=== PATIENT | female | born 2000 | race African-American/Black ===

== ENCOUNTER 2024-03-09 22:07 | Observation (INO) | payer SELFPAY ==
--- NOTE | ~2024-03-09 | US_ITS ---
Pelvic ultrasound. Clinical History: First trimester , evaluate for ectopic Technique: Realtime transabdominal and transvaginal scanning of the pelvis was performed. Color flow Doppler and Doppler spectral analysis were performed. Findings: The uterus is anteverted, and measures approximately 17.4 x 7.3 x 12.3 cm. Large posterior intramural fibroid measures 6.7 x 5.7 x 7.0 cm. Partially exophytic fibroid towards the left side dani sures 4.1 x 3.6 x 3.5 cm.. Endometrial stripe measures 15 mm in thickness. There is a probable early intrauterine gestational sac, with estimated gestational age of 5 weeks 2 days based on average sac d iameter 1.2 cm. No visible pole or yolk sac. The right ovary measures 1.9 x 2.6 x 2.1 cm. No significant right ovarian or adnexal mass is seen. The left ovary is not visualized. No significant left ovarian or adnexal mass is seen. There is a small amount of free fluid in the cul de sac. Impression: Probable early intrauterine gestational sac, with estimated gestational age of 5 weeks 2 days based o n average sac diameter. No visible pole or yolk sac, which would be commensurate with the early gestational age. Consider follow-up with serial beta hCG. Consider follow-up ultrasound as indicated . Multi fibroid uterus, as detailed above. Reviewed, dictated and finalized at [facility]. TECHNICIAN Impression: Probable early intrauterine gestational sac, with estimated gestational age of 5 weeks 2 days based on average sac diameter. No visible pole or yolk sac , which would be commensurate with the early gestational age. Consider follow-u p with serial beta hCG. Consider follow-up ultrasound as indicated. Multi fibroid uterus, as detailed above.
--- NOTE | ~2024-03-09 | US_ITS ---
Pelvic ultrasound. Clinical History: First trimester , pain Technique: Realtime transabdominal and transvaginal scanning of the pelvis was performed. Color flow Doppler and Doppler spectral analysis were performed. Findings: The uterus is anteverted. The endometrial stripe has a thickness of 11 mm. No intrauterine gestational sac is identified. Large posterior intramural fibroid, with partial cervical spine invol vement, measures 6.9 x 5.8 x 6.9 cm. Lower uterine segment fibroid measures up to 3.7 cm in diameter. The right ovary measures 3.1 x 2.7 x 2.5 cm. No significant right ovarian or adnexal mass is seen. The left ovary measures 4.8 x 3.6 x 4.0 cm. Simple left ovarian cyst measures 2.5 cm in diameter. There is small amount of free fluid in the cul de sac. Impression: Positive test without intrauterine gestation. Differential diagnosis includes early normal , spontaneous , or nonvisualized ectopic . Correlate clinically. Continued follow-up with serial beta hCG, and repeat ultrasound as warranted, is advised. Uterine fibroids, as above. Reviewed, dictated and finalized at location . [employer] Impression: Positive test without intrauterine gestation. Differential diagnosis includes early normal , spontaneous , or nonvisualized ectopic . Correlate clinically. Continued follow-up with serial beta hCG, and repeat ultrasound as warranted, is advised. Uterine fibroids, as above.
[2024-03-09 22:20] VITALS: BP 181/103; PULSE 112; RESP 20; TEMP 36.8; O2SAT 100
[2024-03-10] VITALS (11 sets, daily range): BP systolic 137–164; BP diastolic 76–88; PULSE 98–121; RESP 12–24; TEMP 36.8–37.4; O2SAT 96–100; BMI 42.1
--- NOTE | 2024-03-10 05:30 | ECG_ITS ---
Test Date: 2024-03-10 05:40:46 Measurements Intervals [place] Rate: 103 P: 49 KS: 149 QRS: 22 QRSD: 88 T: 19 QT: 328 QTc: 431 Interpretive Statements SINUS TACHYCARDIA MINIMAL VOLTAGE CRITERIA FOR LVH, CONSIDER NORMAL VARIANT [MEETS CRITERIA IN ONE OF: R(aVL), S(V1), R(V5), R(V5/V6)+S(V1)] ABNORMAL RHYTHM ECG No previous ECG available for comparison Electronically Signed On 03-10-2024 22:09:16 FINISHER CARD TENDER by Lidia Young M.D.
--- NOTE | 2024-03-10 05:54 | PC.NURSE ---
Patient states LMP was in january, the beginning of the month but I don't know the day. ERP notified and US ordered for R/O ectopic. Pt c/o of L sided abd pain.
[2024-03-10 05:56] LABS: BEDSIDEPREGUCG Positive (Negative)
[2024-03-10] MEDS: SODIUM CHLORIDE 0.9% IV 1,000 ML 999 ML IV CONT (05:58)
[2024-03-10 05:59] LABS: Basophils Percent Auto 0.2 % (0.2-1.2); Eosinophils Percent Auto 0.2 % (0-4.4); Hematocrit 25.7 % (37.0-47.0); Immature Granulocyte Absolute 0.02 K/mm3 (0.00-0.031); Immature Granulocyte Percent A 0.2 % (0-0.5); Lymphocytes Absolute Auto 2.67 K/mm3 (0.9-3.2); Lymphocytes Percent Auto 31.1 % (18.3-44.2); Mean Corpuscular HGB Conc 31.1 g/dl (32-36); Mean Corpuscular Hemoglobin 19.1 pg (26-34); Mean Corpuscular Volume 61.3 fl (80-100); Mean Platelet Volume 9.5 fl (7.4-10.4); Monocytes Absolute Auto 0.7 K/mm3 (0.1-0.6); Monocytes Percent Auto 8.4 % (2.6-8.5); Neutrophils Absolute Auto 5.1 K/mm3 (1.3-6.7); Neutrophils Percent Auto 59.9 % (45.5-73.1); Platelet Count Result 470 k/mm3 (150-375); Red Blood Count 4.19 M/mm3 (4.2-5.4); Red Cell Distribution Width 21.5 % (11.5-14.5); White Blood Count 8.6 K/mm3 (4.5-10.0)
[2024-03-10 06:12] LABS: Alanine Aminotransferase 19 U/L (6-35); Albumin Level 4.4 g/dL (3.5-5.1); Alkaline Phosphatase 67 U/L (38-126); Anion Gap 10 mmol/L (4-12); Aspartate Amino Transferase 22 U/L (14-36); Bilirubin,Total 0.5 mg/dL (0.2-1.3); Blood Urea Nitrogen 6 mg/dL (7-17); Calcium 9.5 mg/dL (8.4-10.2); Carbon Dioxide 21 mmol/L (22-30); Chloride 108 mmol/L (98-107); Estimated CRCL calculation 178 ml/min; Estimated Glomerular Filt Rate > 60; Glucose 115 mg/dL (65-110); Lipase 104 U/L (23-300); Potassium 3.7 mmol/L (3.4-5.0); Sodium 139 mmol/L (137-145)
[2024-03-10 06:26] LABS: Partial Thromboplastin Time 24.8 Seconds (22.3-36.8); Prothrombin Time 13.9 Seconds (11.1-14.7)
--- NOTE | 2024-03-10 06:26 | ED.SYNCOPE ---
HPI - Syncope General Chief Complaint: Syncope Stated Complaint: anemic, syncope, abdominal pain Time Seen by Provider: 03/10/24 05:55 History of Present Illness HPI narrative: 23-year-old otherwise healthy female presenting to the emergency room with chief complaint of a syncopal event, nausea, vomiting and cramping abdominal pain in the left side. Patient states that she was breaking somebody tear today when she felt a severe nauseous sensation and had to sit down or she passed out briefly. Patient woke up, had vomiting and some cramping left-sided abdominal pain. She states she also had episode of loose stool yesterday but no watery diarrhea or blood. Denies any vaginal bleeding, dysuria or urinary symptoms. She states she has not had her period since the beginning of January. Patient was otherwise in her normal state of health. Patient states she has had a history of anemia an iron deficiency for which she takes iron supplements. Related Data Allergies Allergy/AdvReac Type Severity Reaction Status Date / Time No Known Allergies Allergy Verified 03/09/24 22:08 Review of Systems Review of Systems: As reviewed above in HPI Exam Narrative: GENERAL: Tearful, not any acute distress HEAD: [Normocephalic, atraumatic.] EYES: [PERRLA and EOMI.] ENT: Nares clear, no rhinorrhea or epistaxis. Mucous membranes moist. NECK: Supple. CHEST: [Clear to auscultation. No respiratory distress.] HEART: [Regular rate and rhythm]. No murmur heard. [Normal peripheral pulses.] ABDOMEN: [Soft, nondistended], mild tenderness to palpation left lower quadrant, [No rigidity or guarding] EXTREMITIES: Normal range of motion. [No edema.] SKIN: Warm, dry, no rash. NEURO: [No focal deficits]. Alert and oriented [x3.] PSYCH: [Normal mood and affect.] Course Vital Signs Vital signs: Vital Signs Temperature 36.8 C 03/09/24 22:20 Pulse Rate 112 H 03/09/24 22:20 Respiratory Rate 20 03/09/24 22:20 Blood Pressure 181/103 H 03/09/24 22:20 Pulse Oximetry 100 03/09/24 22:20 Temperature 36.8 C 03/09/24 22:20 Pulse Rate 110 H 03/10/24 08:46 Respiratory Rate 17 03/10/24 08:42 Blood Pressure 153/80 H 03/10/24 08:46 Pulse Oximetry 100 03/10/24 08:42 MDM - Syncope MDM Narrative Medical decision making narrative: 23-year-old female with history of iron deficiency anemia presenting to the emergency room today after a syncopal event associated with nausea, vomiting left-sided cramping abdominal pain. Patient states that she was braiding hair when she felt profoundly nauseous and had a syncopal event. She said back into a couch and did not fall to the ground or strike her head. She woke up momentarily thereafter and complained of nauseousness and cramping abdominal pain. She is found to be while here in the emergency department, tachycardic with a pulse of 112, slightly hypertensive with a blood pressure 164/88. Respiratory rate of 20, no fever or hypoxia. She has some mild tenderness in left lower quadrant but no overlying skin changes. No urinary complaints or vaginal bleeding or spotting. Last menstrual period about 8 weeks ago. Considerations presently are for potential ectopic given the tachycardia, positive test and syncopal event associated with abdominal pain. The nausea vomiting as well as 1 episode of loose diarrhea could be nonspecific gastroenteritis that may have also led to the syncopal event. EKG was obtained, blood work was sent, quantitative beta HCG obtained as well as a pelvic and transabdominal ultrasound to rule out any kind of ectopic . She was provided fluid bolus. Presently she does not have any pain and provided nausea medicine including Zofran. Patient frequently evaluated and remains persistently tachycardic in the low 110s to 115 range. No fever or hypoxia. No blood pressure concerns. No leukocytosis, hemoglobin of 8.0 with microcytosis consistent with her known history of iron deficiency anemia but no baseline to compare to. Coagulation studies within normal limits. Electrolytes largely unremarkable, normal renal function panel, normal glucose and hepatic function panel. Beta hCG is elevated 6880. Urinalysis is profoundly contaminated with many squamous cells making was nondiagnostic, patient does not have any urinary tract infection type symptoms at this time. COVID fluid RSV swabs are negative. Ultrasound of the abdomen and pelvis was independently reviewed and interpreted by radiology. No identifiable intrauterine gestation, trace free fluid in the cul-de-sac, uterine fibroids noted. Considerations for a nonvisualized ectopic at this time given patient's positive test above the discrimination zone, persistent tachycardia and free fluid in the abdomen. Consult was placed I spoke to Dr. Torres from OBGYN over the phone. We went over patient's imaging studies, clinical exam and assessment with plan of care. Patient will be admitted to the OBGYN service for observation and potential methotrexate for ectopic. Patient was made aware of the imaging findings and plan of care and was agreeable to hospital admission at this time. Observation admit order to the OB service with telemetry ordered. Maintenance fluids ordered as well as NPO status. Medical Records Attestation: I reviewed the patient's medical records. Lab Data Attestation: I reviewed the patient's lab results. 03/10/24 05:47 03/10/24 05:47 Labs: Lab Results 03/10/24 03/10/24 03/10/24 Range/Units 05:47 05:54 06:21 WBC 8.6 (4.5-10.0) K/mm3 RBC 4.19 L (4.2-5.4) M/mm3 Hgb 8.0 L (12.0-15.0) g/dL Hct 25.7 L (37.0-47.0) % MCV 61.3 L (80-100) fl MCH 19.1 L (26-34) pg MCHC 31.1 L (32-36) g/dl RDW 21.5 H (11.5-14.5) % Plt Count 470 H (150-375) k/mm3 MPV 9.5 (7.4-10.4) fl Immature Gran % (Auto) 0.2 (0-0.5) % Neut % (Auto) 59.9 (45.5-73.1) % Lymph % (Auto) 31.1 (18.3-44.2) % [place] % (Auto) 8.4 (2.6-8.5) % Eos % (Auto) 0.2 (0-4.4) % Baso % (Auto) 0.2 (0.2-1.2) % Lymph # (Auto) 2.67 (0.9-3.2) K/mm3 Casey # (Auto) 0.7 H (0.1-0.6) K/mm3 Eos # (Auto) 0.0 (0-0.3) K/mm3 Baso # (Auto) 0.0 (0.0-0.1) K/mm3 Abs Immat Gran (auto) 0.02 (0.00-0.031) K/mm3 Absolute Neuts (auto) 5.1 (1.3-6.7) K/mm3 Absolute Nucleated RBC 0.000 (0.0-0.012) K/mm3 Nucleated RBC % 0.0 (0.0-0.2) % Platelet Estimate Increased (Adequate) Hypochromasia 3+ Anisocytosis 1+ Target Cells 1+ [place] Cells 1+ Schistocytes None seen PT 13.9 (11.1-14.7) Seconds INR 1.0 APTT 24.8 (22.3-36.8) Seconds Sodium 139 (137-145) mmol/L Potassium 3.7 (3.4-5.0) mmol/L Chloride 108 H (98-107) mmol/L Carbon Dioxide 21 L (22-30) mmol/L Anion Gap 10 (4-12) mmol/L BUN 6 L (7-17) mg/dL Creatinine 0.49 L (0.7-1.0) mg/dL Estim Creat Clear Calc 178 ml/min Estimated GFR > 60 (59 - ) Glucose 115 H (65-110) mg/dL Calcium 9.5 (8.4-10.2) mg/dL Total Bilirubin 0.5 (0.2-1.3) mg/dL AST 22 (14-36) U/L ALT 19 (6-35) U/L Alkaline Phosphatase 67 (38-126) U/L Total Protein 8.0 (6.3-8.2) g/dL Albumin 4.4 (3.5-5.1) g/dL Lipase 104 (23-300) U/L Beta HCG, Quant 6888.50 mIU/ML Urine Color Dark yellow (Yellow) Urine Appearance Cloudy H (Clear) Urine pH 5.0 (5.0-9.0) Ur Specific [place] 1.032 (1.001-1.035) Urine Protein 1+ H (Negative) mg/dL Urine Glucose (UA) Negative (Negative) mg/dL Urine Ketones Trace H (Negative) mg/dL Ur Blood (Man) Negative (Negative) Urine Nitrate Positive H (Negative) Urine Bilirubin Negative (Negative) Urine Urobilinogen 1.0 (<2.0) mg/dL Add Ur Microanalysis Reviewed Leukocyte Esterase Rfl 1+ H (Negative) BROOK/UL Urine RBC 3-5 H (0-2) /hpf Urine WBC 21-50 H (0-3) /hpf Ur Squamous Epith Cells Many H (Few) /hpf Urine Bacteria 4+ H /hpf Urine Casts 0-2 POC Urine HCG, Qual Positive (Negative) Influenza A (RT-PCR) Negative (Negative) Influenza B (RT-PCR) Negative (Negative) RSV (RT-PCR) Negative (Negative) SARS-CoV-2 RNA (RT-PCR) Negative (Negative) Blood Type B Positive Antibody Screen Negative Screen Not Reportable Baby's Blood Type Not Reportable Baby's EVELIN Not Reportable Doses of RhIg Required 0 Imaging Data Attestation: I personally reviewed and interpreted this imaging study as follows: My impression: Impressions Obstetrics Ultrasound 03/10/24 08:33 Impression: Positive test without intrauterine gestation. Differential diagnosis includes early normal , spontaneous , or nonvisualized ectopic . Correlate clinically. Continued follow-up with serial beta hCG, and repeat ultrasound as warranted, is advised. Uterine fibroids, as above. Discharge Plan Discharge Clinical Impression: Ectopic without intrauterine , Syncope and collapse, Tachycardia Patient Disposition: Still a Patient Condition: Guarded Prognosis Patient Language: Yi Follow-up/Referrals: PHYSICIAN,[facility] [employer] [Primary Care Provider] - Time of Disposition: 09:16
[2024-03-10 06:29] LABS: Add Urine Microscopic? YES; Appearance Urine Cloudy (Clear); Bacteria Urine 4+ /hpf; Bilirubin Urine Negative (Negative); Blood Urine Negative (Negative); Color Urine Dark Yellow (Yellow); Glucose Urine UA Negative (Negative); Ketones Urine Trace mg/dL (Negative); Leukocyte Esterase Ur 1+ LEU/UL (Negative); Need Manual Microscopic Reviewed; Nitrate Urine Positive (Negative); Non Pathogenic Casts 0-2; Protein Urine 1+ mg/dL (Negative); Specific Grav Ur 1.032 (1.001-1.035); Squamous Epithelial Cell Urine Many /hpf (Few); WBC Urine 21-50 /hpf (0-3)
[2024-03-10 06:35] LABS: Influenza A QL RT-PCR Negative (Negative); Influenza B QL RT-PCR Negative (Negative); RSV RNA, RT-PCR Negative (Negative); SARS-CoV-2 RNA PCR Negative (Negative)
--- NOTE | 2024-03-10 07:03 | PC.NURSE ---
Patient in US at this time.
[2024-03-10 07:15] LABS: Platelet Estimate Increased (Adequate)
[2024-03-10 07:16] LABS: Anisocytosis 1+; Burr Cells 1+; Hypochromasia 3+; Schistocytes None Seen; Target Cells 1+
[2024-03-10] MEDS: LACTATED RINGERS 1,000 ML 125 ML IV CONT ×2 (09:17→17:54)
--- NOTE | 2024-03-10 13:12 | PC.NURSE ---
patient being admitted with IV fluids infusing per order
[2024-03-11] VITALS (10 sets, daily range): BP systolic 138–150; BP diastolic 79–94; PULSE 92–107; RESP 18; TEMP 36.9–37.2; O2SAT 100
[2024-03-11] MEDS: LACTATED RINGERS 1,000 ML 125 ML IV CONT ×2 (03:03→11:26)
--- NOTE | 2024-03-11 17:32 | PM.IMHP ---
H&P: HPI History of Present Illness Date/Time: 03/11/24 17:32 Chief Complaint: Dizziness Narrative: 23-year-old female who presented to the emergency department for dizziness. She is . She has an unknown last menstrual period date. Quantitative hCG was obtained in the emergency department along with pelvic ultrasound. There is a of unknown location with a quantitative HCG over 6000. Patient has no pain in the pelvis. Patient denies any vaginal bleeding. She denies any nausea, vomiting, fever, chills. She denies any chest pain or shortness of breath. We discussed the findings. We discussed of unknown location. We agreed to repeat quantitative HCG tonight and consider ultrasound for the morning. A more accurate diagnosis may be revealed. Review of Systems Review of Systems: All systems reviewed & are unremarkable except as noted in HPI and below Constitutional: Constitutional: Denies chills, Denies fatigue, Denies fever(s) and Denies weakness Eyes: Eyes: Denies blurry vision, Denies change in vision, Denies loss of peripheral vision, Denies loss of vision, Denies other visual disturbances and Denies eye pain ENT: Denies vertigo, Denies dizziness, Denies hearing loss, Denies mouth pain, Denies nasal obstruction, Denies neck mass and Denies neck pain Cardiovascular: Cardiovascular: Denies chest pain, Denies diaphoresis, Denies syncope, Denies leg edema and Denies dyspnea Respiratory: Respiratory: Denies chest congestion, Denies cough, Denies hemoptysis, Denies dyspnea and Denies wheezing Gastrointestinal: Gastrointestinal: Denies abdominal pain, Denies constipation, Denies diarrhea, Denies nausea and Denies vomiting Genitourinary: Genitourinary: Denies hematuria, Denies change in libido, Denies nocturia, Denies genital lesions, Denies flank pain and Denies urinary urgency Musculoskeletal: Musculoskeletal: Denies abnormal gait, Denies back pain, Denies myalgias, Denies arthralgias, Denies joint swelling, Denies muscle weakness and Denies neck pain Integumentary/Breasts: Skin/Breast: Denies swelling, Denies breast pain, Denies breast mass, Denies dry skin, Denies nipple discharge, Denies unusual bruising and Denies jaundice Neurologic: Denies Neuro-related abnormal movements, Denies Abnormal speech present, Denies abnormal gait, Denies behavioral changes, Denies confusion, Denies vertigo, Denies dizziness, Denies syncope, Denies loss of vision, Denies memory loss, Denies convulsions and Denies weakness Psychiatric: Psychiatric: Denies abnormal sleep pattern, Denies behavioral changes, Denies change in libido, Denies confusion, Denies depression, Denies anhedonia and Denies memory loss Endocrine: Endocrine: Reports no additional endocrine complaints, Denies change in libido and Denies fatigue Hematologic/Lymphatic: Hematologic/Lymphatic: Reports no additional hematologic/lymphatic complaints Allergic/Immunologic: Allergic/Immunologic: Reports no additional allergic/immunologic complaints and Denies wheezing PMFSH Social History Social History Smoking status: Never smoker Alcohol intake: former Substance use: never Do You Feel Safe in your Home?: Yes Lack of Transportation: No Lack of Food: Never True Current Housing: Decline to Answer Concerned About Future Housing: Decline to Answer Difficulty Paying Gas/Electric Bills: Decline to Answer Difficulty Paying for Meds: Decline to Answer Currently Unemployed: Decline to Answer Education: Decline to Answer Difficulty w/ Childcare or Family Care: Decline to Answer Spiritual care concerns: No Meds Home Medications and Allergies Home Medications ?Medication ?Instructions ?Recorded ?Confirmed ?Type No Home Medications 03/11/24 03/11/24 History Allergies Allergy/AdvReac Type Severity Reaction Status Date / Time No Known Allergies Allergy Verified 03/10/24 13:47 Vital Signs Vital Signs - 24 hr 03/10/24 18:11 03/10/24 20:00 03/10/24 20:00 Temperature Pulse Rate 121 H 98 Respiratory Rate 16 Blood Pressure Pulse Oximetry 100 Oxygen Delivery Room Air Room Air 03/10/24 22:00 03/11/24 00:00 03/11/24 01:02 Temperature 98.7 F 98.9 F Pulse Rate 100 107 H 100 Respiratory Rate 18 18 Blood Pressure 146/79 H 140/79 Pulse Oximetry 100 100 Oxygen Delivery 03/11/24 04:00 03/11/24 05:10 03/11/24 08:00 Temperature 98.4 F Pulse Rate 94 100 96 Respiratory Rate 18 Blood Pressure 138/79 Pulse Oximetry 100 Oxygen Delivery 03/11/24 08:15 03/11/24 12:00 03/11/24 13:59 Temperature 98.4 F Pulse Rate 92 100 Respiratory Rate 18 Blood Pressure 138/79 Pulse Oximetry 100 Oxygen Delivery Room Air Exam Const: General: cooperative, healthy appearing, comfortable and no acute distress Orientation/consciousness: oriented to person, oriented to place and oriented to time HENMT: Head: normal to inspection Ears: external ears normal Face/Nose/Sinus: Normal external nose present and normal facial exam Face and sinus: normal facial exam Eyes: General: appearance normal, both eyes and all related structures Neck: Neck: normal visual inspection, trachea midline and supple Resp: Auscultation: clear to auscultation bilaterally, no crackles, no rales, no rhonchi and no wheezes Cardio: Rate: regular rate Rhythm: regular rhythm Heart sounds: no click, no murmurs and no rubs GI: GI Palp: No abdominal tenderness, No Soft to palpation, No Tenderness to palpation present (GI) and No Palpable mass present Auscultation: normal bowel sounds Skin: General skin exam: normal color and no rashes or lesions noted Neuro: General: oriented to person, oriented to place and oriented to time Extrem: General: normal to inspection, no joint enlargement, no clubbing, cyanosis or edema, no pedal edema and no calf tenderness Psych: Appearance: grossly normal Mental Status: mental status grossly normal Speech and movement: Normal speech and movement present Assessment and Plan Assessment and plan (1) of unknown anatomic location: Code(s): O36.80X0 - with inconclusive viability, not applicable or unspecified Status: Acute Plan 23-year-old female who presented to the emergency department for dizziness. She is . She has an unknown last menstrual period date. Quantitative hCG was obtained in the emergency department along with pelvic ultrasound. There is a of unknown location with a quantitative HCG over 6000. Patient has no pain in the pelvis. Patient denies any vaginal bleeding. She denies any nausea, vomiting, fever, chills. She denies any chest pain or shortness of breath. We discussed the findings. We discussed of unknown location. We agreed to repeat quantitative HCG tonight and consider ultrasound for the morning. A more accurate diagnosis may be revealed.
[2024-03-11] MEDS: ACETAMINOPHEN 325 MG TABLET 650 MG PO (23:16)
[2024-03-12] VITALS: PULSE 115
[2024-03-12 04:00] VITALS: PULSE 87
[2024-03-12 06:00] VITALS: BP 128/60; PULSE 94; RESP 18; TEMP 36.7; O2SAT 100
[2024-03-12 08:00] VITALS: PULSE 91
--- NOTE | 2024-03-12 09:02 | PM.GYNPNOP ---
DIRECTOR SELECTION AND ADMINISTRATION - A/P Assessment and plan (1) of unknown anatomic location: Code(s): O36.80X0 - with inconclusive viability, not applicable or unspecified Status: Acute Plan 03/12/24 09:02 appears to have an intrauterine gestational sac, appears that this may be a normal . HCGs have gone up well today. It is unclear if it meets the 60% criteria over 48 hours. This was taken in less than 24 hours. Went up sharply however. Will discharge with short-term follow-up. Time Spent With Patient Time: Total time spent is greater than 50% in coordination of care (as documented) at patient's floor/unit and/or counseling patient: Time with patient: 15 - 25 minutes DIRECTOR SELECTION AND ADMINISTRATION- PN:Subj Post-Op Subjective Date/time seen: 03/12/24 09:02 appears to have an intrauterine gestational sac, appears that this may be a normal . HCGs have gone up well today. It is unclear if it meets the 60% criteria over 48 hours. This was taken in less than 24 hours. Went up sharply however. Will discharge with short-term follow-up. DIRECTOR SELECTION AND ADMINISTRATION - PN: Obj Data Vital Signs Vital Signs: Vital Signs - 24 hr 03/11/24 12:00 03/11/24 13:59 03/11/24 17:04 Temperature 98.4 F Pulse Rate 92 100 97 Respiratory Rate 18 Blood Pressure 138/79 Pulse Oximetry 100 Oxygen Delivery 03/11/24 20:00 03/11/24 20:00 03/11/24 21:15 Temperature 98.5 F Pulse Rate 102 H 96 Respiratory Rate 18 Blood Pressure 150/94 H Pulse Oximetry 100 Oxygen Delivery Room Air 03/12/24 00:00 03/12/24 04:00 03/12/24 06:00 Temperature 98.1 F Pulse Rate 115 H 87 94 Respiratory Rate 18 Blood Pressure 128/60 Pulse Oximetry 100 Oxygen Delivery Intake/Output Intake/Output: Intake & Output 03/09/24 03/10/24 03/11/24 03/12/24 23:59 23:59 23:59 23:59 Intake Total 1999 2800 950 Output Total 1270 Balance 1999 1530 950 Meds/Results Medications: Active Medications Generic Name Dose Route Start Last Admin Trade Name Freq PRN Reason Stop Dose Admin Acetaminophen 650 mg 03/10/24 08:59 03/11/24 23:16 Acetaminophen 325 Mg Tablet PO 650 mg Q4H PRN Administration Mild Pain (1-3) or Fever Ondansetron HCl 4 mg 03/10/24 08:59 Ondansetron Inj 4 Mg/2 Ml Vial IV PUSH Q4H PRN Nausea Radiology Results: ITS Impressions Obstetrics Ultrasound 03/12/24 08:58 Impression: Probable early intrauterine gestational sac, with estimated gestational age of 5 weeks 2 days based on average sac diameter. No visible pole or yolk sac, which would be commensurate with the early gestational age. Consider follow-up with serial beta hCG. Consider follow-up ultrasound as indicated. Multi fibroid uterus, as detailed above. Labs 03/10/24 05:47 03/10/24 05:47 Labs: Laboratory Results - last 24 hr 03/11/24 03/12/24 05:47 05:39 Beta HCG, Quant 6443.00 91675.00
[2024-03-12 14:00] VITALS: BP 130/70; PULSE 91; RESP 18; TEMP 36.7; O2SAT 100
[2024-03-12] MEDS: ACETAMINOPHEN 325 MG TABLET 650 MG PO (17:56)
--- NOTE | 2024-04-03 21:19 | P.DS_ITS ---
DS: Admitting Diagnosis Discharge Date 03/12/24 Admitting Diagnosis of unknown location DS: Discharge Diagnosis Discharge Diagnosis (1) of unknown anatomic location: Code(s): O36.80X0 - with inconclusive viability, not applicable or unspecified Status: Acute DS: Summary Hospital Course Hospital Course: 23-year-old female with a of unknown location was seen in the emergency department for a pain issue. Ultrasound did not reveal an intrauterine at that time. Quants did go up significantly and a 12 hour period. She will follow up in the office. She was ready for discharge after short period of observation. Time Spent with Patient Time attestation: Total time spent providing and/or coordinating discharge services: Discharge Plan Discharge Attending physician on discharge: Bryn Torres Consulting providers: Mir Baker; Ben Mike Discharging Clinician: Bryn Torres Patient Disposition: Home, Self-Care Activity: as tolerated Diet: regular Discharge Instructions: Follow up in the office on Monday. Get blood draw on . Patient Instructions: Antibiotic Form Patient Language: Macedonian Stand Alone Forms: General Discharge Information Follow-up/Referrals: Bryn Torres MD [Physician] - 03/15/24 Other Ambulatory Orders: Beta HCG Quantitative (Routine) Timeframe: 20240314 Location: Determined by Patient Ordered By: Bryn Torres Date of admission: 03/10/24 08:59 Primary Care Provider: PHYSICIAN,SALES PROGRAM COORDINATOR Admitting Provider: Bryn Torres Attending physician on admission: Bryn Torres Condition: Guarded Prognosis
== END 2024-03-12 20:40 | disposition home or self-care (01) ==
LOC: ANHED 03-10 09:16 → ANH3MEDSUR 03-10 13:38
PROVIDERS: Admitting Provider Obstetrics & Gynecology; Emergency Provider Student in an Organized Health Care Education/Training Program; Visit Provider Obstetrics & Gynecology
DX: O36.80X0 Pregnancy with inconclusive fetal viability, not applicable or unspecified (principal); O99.011 Anemia complicating pregnancy, first trimester; D50.9 Iron deficiency anemia, unspecified; Z3A.00 Weeks of gestation of pregnancy not specified; Z20.822 Contact with and (suspected) exposure to COVID-19
CPT/HCPCS: 36415; 76801; 76817; 80053; 81001; 81025; 83690; 84702; 85025; 85461; 85610; 85730; 86850; 86900; 86901; 87637; 93005; 96360; 96361; 99285; A9270; G0378; J7030; J7120